=== PATIENT | male | born 1965 | race Asian ===

== ENCOUNTER 2024-11-04 10:01 | Outpatient (CLI) | payer BC ==
[2024-11-04] MEDS ORDERED: Iopamidol-370 76% 500 ML MDV (1 ML CHARGE) ONE (12:50)
== END 2024-11-04 10:02 | disposition home or self-care (01) ==
LOC: CT 10:01
PROVIDERS: ATTEND Internal Medicine Cardiovascular Disease
DX: R07.9 Chest pain, unspecified (principal); R91.1 Solitary pulmonary nodule
CPT/HCPCS: 71275; Q9967